=== PATIENT | female | born 2005 | race Caucasian/White ===

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

== ENCOUNTER 2024-06-09 16:30 | Emergency (ER) | payer SELFPAY | END 2024-06-09 17:50 | disposition home or self-care (01) | LOC: NAV ERS 16:30 | DX: S43.002A Unspecified subluxation of left shoulder joint, initial encounter (principal); S43.001A Unspecified subluxation of right shoulder joint, initial encounter; F17.210 Nicotine dependence, cigarettes, uncomplicated; X58.XXXA Exposure to other specified factors, initial encounter | CPT/HCPCS: 99283 ==

== ENCOUNTER 2025-01-21 22:57 | Emergency (ER) | payer MEDICAID, SELFPAY | END 2025-01-22 | disposition home or self-care (01) | LOC: NAV ERS 22:57 | DX: R07.89 Other chest pain (principal); F41.9 Anxiety disorder, unspecified; F17.290 Nicotine dependence, other tobacco product, uncomplicated | CPT/HCPCS: 99284 ==

== ENCOUNTER 2025-03-28 10:37 | Emergency (ER) | payer SELFPAY ==
[2025-03-28] MEDS ORDERED: Ibuprofen 200 MG TAB ONE (11:08)
== END 2025-03-28 11:10 | disposition home or self-care (01) ==
LOC: NAV ERS 10:37
DX: K04.4 Acute apical periodontitis of pulpal origin (principal); K08.89 Other specified disorders of teeth and supporting structures; F17.290 Nicotine dependence, other tobacco product, uncomplicated
CPT/HCPCS: 99282